=== PATIENT | female | born 1945 | race Caucasian/White ===

== ENCOUNTER → 2018-07-18 | Day surgery (SDC) | payer OTHER ==
[2018-07-16 15:16] LABS: BASOPHILS # (AUTO) 0.1 (0.0-0.1); BASOPHILS % 1.3 % (0.0-1.0); EOSINOPHILS # (AUTO) 0.1 (0.0-0.4); EOSINOPHILS % 1.9 % (0.0-6.0); HEMATOCRIT 39.6 % (34.2-44.1); LYMPHOCYTES # (AUTO) 2.4 (1.0-3.2); LYMPHOCYTES % 34.3 % (18.0-39.1); MEAN CORPUSCULAR HEMOGLOBIN 29.7 pg (28-32); MEAN CORPUSCULAR HGB CONC 32.8 g/dL (31-35); MEAN CORPUSCULAR VOLUME 90.6 fL (81-99); MONOCYTES # (AUTO) 0.5 (0.2-0.8); MONOCYTES % 7.8 % (4.4-11.3); NEUTROPHILS # (AUTO) 3.8 (2.1-6.9); NEUTROPHILS % 54.6 % (38.7-80.0); PLATELET COUNT 255 x10e3/uL (140-360); RED BLOOD COUNT 4.37 x10e6/uL (3.6-5.1); RED CELL DISTRIBUTION WIDTH 12.8 % (11.7-14.4)
--- NOTE | 2018-07-16 15:46 | Diagnostic Imaging Report ---
EXAMINATION: PA and lateral views of the chest. COMPARISON: None CLINICAL HISTORY: Preoperative study for bladder procedure DISCUSSION: Lungs are well-inflated and without focal consolidation, pleural effusion, or pneumothorax. Scattered linear opacities in the lingula and right lower lobe compatible with fibrosis or subsegmental atelectasis. Atherosclerotic calcification of the thoracic aorta. Otherwise normal cardiomediastinal contour. No acute osseous abnormal the. Degenerative disc changes of the thoracic spine. IMPRESSION: No acute cardiopulmonary abnormalities. Signed by: Dr. Constantino Judd M.D. on 07/16/2018 3:43 PM
[~2018-07-18] MED LIST: BAYER; BELLADONNA/OPIUM 30 MG SUPP RC ONE; BOTULINUM TOXIN TYPE A 100 UNIT VIAL IM ONE; DEXAMETHASONE SOD PHOS INJ 4 MG/ML VIAL ONE; EPHEDRINE SULFATE INJ 50 MG/10 ML SYR ONE; FENTANYL CITRATE/PF 100MCG/2 ML INJ ONE; GENTAMICIN 80MG/NS 100 ML 200 ML IV ONE; IOPAMIDOL 610MG/1ML 300 MG/ML VIAL IV ONE; LEVOFLOXACIN 500MG/D5W 100ML 100 ML IV ONE; LIDOCAINE HCL 2% LOCAL INJ 5 ML SDV VIAL INJ ONE; MIDAZOLAM HCL 2 MG/2 ML VIAL ONE; ONDANSETRON HCL INJ 2MG/ML 2ML 2 MG/ML VIAL ONE; PROPOFOL IV EMULSION 10 MG/ML 20 ML VIAL ONE; SEVOFLURANE INHAL SOLN 250 ML PEN BTL ONE; VASOTEC5 MG PO
--- OUTSIDE RECORDS SUMMARY | 2018-07-18 06:04 | XMS REPORT | Summary of Care ---
Author Author [facility] [place] Organization [facility] [place] Address Unknown Phone Unavailable Encounter HQ Encntr_rosie(FIN) [id number] Date(s): 08/03/15 - 08/03/15 [facility] [place] [address] [place] [address] [phone] Discharge Disposition: Home Attending Physician: Evangelista Patel MD Vital Signs No data available for this section Problem List No data available for this section Allergies, Adverse Reactions, Alerts Substance Reaction Severity Status penicillin Active sulfa drugs Active Medications No data available for this section Results No data available for this section Immunizations No data available for this section Procedures No data available for this section Social History No data available for this section Assessment and Plan No data available for this section
--- OUTSIDE RECORDS SUMMARY | 2018-07-18 06:04 | XMS REPORT | Summary of Care ---
Author Author [facility] [place] Organization [facility] [place] Address Unknown Phone Unavailable Encounter HQ Alicia_rosie(FIN) [id number] Date(s): 11/16/17 - 11/16/17 [facility] [place] [address] [place] [address]- [phone] Discharge Disposition: Home or Self Care Attending Physician: Bartolo Cartwright MD Vital Signs No data available for this section Problem List Condition Effective Dates Status Health Status Informant Aneurysm of Resolved abdominal aorta(Confirmed) CVA (cerebral Resolved vascular accident)(Confirmed) COPD (chronic Resolved obstructive pulmonary disease)(Confirmed) Dermatitis(Confirmed Resolved ) Reflux Resolved esophagitis(Confirme d) Hemorrhoids(Confirme Resolved d) HTN Resolved (hypertension)(Confi rmed) Multiparity(Confirme Resolved d) Osteoporosis(Confirm Resolved ed) Sciatica(Confirmed) Resolved Allergies, Adverse Reactions, Alerts Substance Reaction Severity Status sulfa drugs Active penicillin Active Medications No data available for this section Results No data available for this section Immunizations No data available for this section Procedures Procedure Date Related Diagnosis Body Site Status Hysterectomy Completed Laminectomy Completed Operation1 Completed 1Cervical Vertebral Fusion Social History Social History Type Response Smoking Status Current every day smoker; Exposure to Tobacco Smoke None; Cigarette Smoking Last 365 Days Yes; Reg Smoking Cessation Counseling No; Other Tobacco Frequency 1/2 a pack a day; entered on: 08/08/17 Assessment and Plan No data available for this section
--- OUTSIDE RECORDS SUMMARY | 2018-07-18 06:04 | XMS REPORT | Continuity of Care Document ---
Author Author [facility] Interface Address Unknown Phone Unavailable Problems Problem Status Onset Date Classification Date Reported Comments Source Encounter for screening for malignant neoplasm of colon 08/15/2017 11/14/2017 [facility] UNK Active 07/24/2017 [facility] M54.30 - "SCIATICA, UNSPECIFIED SIDE" Active 12/29/2015 [facility] M50.20 - OTHER CERVICAL DISC DISPLACEME Active 08/03/2015 [facility] Aneurysm of abdominal aorta Resolved Problem 11/19/2017 [facility] CVA (<span ID="[id number]">Confirmed</span>) Resolved Problem 11/19/2017 [facility] COPD (<span ID="[id number]">Confirmed</span>) Resolved Problem 11/19/2017 [facility] Dermatitis Resolved Problem 11/19/2017 [facility] Reflux esophagitis Resolved Problem 11/19/2017 [facility] Hemorrhoids Resolved Problem 11/19/2017 [facility] HTN (<span ID="[id number]">Confirmed</span>) Resolved Problem 11/19/2017 [facility] Multiparity Resolved Problem 11/19/2017 [facility] Osteoporosis Resolved Problem 11/19/2017 [facility] Sciatica Resolved Problem 11/19/2017 KRISTA [facility] Polyp of colon 11/14/2017 [facility] Diverticulosis of large intestine without perforation or abscess without bleeding 11/14/2017 [facility] Essential hypertension 11/14/2017 [facility] Gastro-esophageal reflux disease without esophagitis 11/14/2017 [facility] Chronic obstructive pulmonary disease, unspecified 11/14/2017 [facility] Anemia in other chronic diseases classified elsewhere 11/14/2017 [facility] Personal history of transient ischemic attack , and cerebral infarction without residual deficits 11/14/2017 [facility] Age-related osteoporosis without current pathological fracture 11/14/2017 [facility] Medications Medication Details Route Status Patient Instructions Ordering Provider Order Date Source Sodium Chloride 0.9% IV 1000 mL 1,000 mL, Rate: 25 ml/hr, Infuse over: 40 hr, Route: IV, Dosing Weight 61.818 kg, Total Volume: 1,000, Start date: 08/08/17 8:15:00 [employer] SCIENTIST, Duration: 30 day, Stop date: 09/07/17 8:14:00 CDT, 1.69, m2 Inactive 08/08/2017 [facility] enalapril 2.5 mg oral tablet 2.5 mg=1 tab, PO, Daily, # 30 tab, 0 Refill(s) Active 08/07/2017 [facility] Betamethasone 0.5 MG/ML Topical Lotion 1 appl, TOP, BID, 0 Refill(s) Active 08/07/2017 [facility] Doxycycline Monohydrate 100 MG Oral Tablet 100 mg=1 tab, PO, Q12H, # 28 tab, 0 Refill(s) Active 08/07/2017 [facility] Aspirin 325 MG Oral Tablet 325 mg=1 tab, PO, Daily, # 90 tab, 0 Refill(s) Active 08/07/2017 [facility] Alendronic acid 70 MG Oral Tablet 70 mg=1 tab, PO, 0 Refill(s) Active 08/07/2017 [facility] gabapentin 300 mg, PO, TID, take 2-3 times daily as needed, 0 Refill(s) Active 08/07/2017 [facility] Allergies, Adverse Reactions, Alerts Substance Category Reaction Severity Reaction type Status Date Reported Comments Source penicillin Assertion Drug allergy Active [facility] sulfa drugs Assertion Drug allergy Active [facility] Immunizations Immunization Date Given Site Status Last Updated Comments Source Results Order Name Results Value Reference Range Date Interpretation Comments Source Abdomen w/wo IV contrast CT Abdomen w/wo IV contrast CT EXAM: CT ABDOMEN WITH AND WITHOUT CONTRAST DATE: 02/14/2018 9:53 AM CDT INDICATION: - E27.9 Disorder of adrenal gland, unspecified. Adrenal nodule seen on prior chest and abdominal aorta CTA ADDITIONAL INFORMATION: None. COMPARISON: CTA of the chest and abdomen with runoff of 01/26/2018. TECHNIQUE: Volumetric CT acquisition of the abdomen before and after intravenous contrast. Axial, coronal and sagittal reconstructions. Postcontrast phases: Portal venous and delayed IV contrast: 100 cc of Omnipaque 300 Oral contrast: 700 cc of water DLP: 517 mGy-cm FINDINGS: Lines and tubes: None. Lower thorax: Stable areas of linear scarring or subsegmental atelectasis are again seen within the lung bases. No pleural or pericardial effusions are seen. Liver: Normal. Biliary tree: No intra- or extrahepatic biliary ductal dilation. Gallbladder: Normal. No CT evidence of gallstones. Pancreas: Normal. Spleen: Normal. Adrenals: Within the right adrenal gland superiorly, there is a 0.7 x 1.5 x 1.1 cm right adrenal nodule measuring 1 Hounsfield unit in density on precontrast imaging and displaying mild enhancement on postcontrast imaging. No abnormalities of the left adrenal gland are seen. Kidneys and ureters: A 6 mm hypodensity which is too small to characterize is seen in the inferior pole of the right renal cortex on image 69 of series 8. There is a mild area left posterior renal cortical scarring. Atherosclerotic calcifications are seen in distal branches of the left renal artery. Multiple 1- 2 mm calculi are seen within minor calyces of both kidneys. Otherwise, the kidneys enhance symmetrically and normally with prompt excretion of contrast material. No hydronephrosis or masses are seen. The included portions of the ureters are of normal course and caliber with no constricting or obstructing lesions. Gastrointestinal tract: The stomach is normal in appearance. No abnormalities of the included large and small bowel are demonstrated. The small intestine and colon are of normal course and caliber with no constricting or obstructing lesions, masses, or surrounding inflammatory changes. Appendix: Not visualized Peritoneum and retroperitoneum: No ascites or free air. Lymph nodes: No abdominal lymphadenopathy is seen. Vasculature: There is a stable fusiform aneurysm of the abdominal aorta distal to the renal arteries and measuring 3.1 x 3.0 cm in maximal transverse and AP dimension. Circumferential mixed calcified and noncalcified plaque formation is present. Moderate atherosclerotic calcified plaque formation is seen within the aortoiliac system as well as within the celiac axis. No abnormalities of the inferior vena cava or the portal venous system are seen. Bones: Multilevel spondylosis and disc space narrowing are seen in the included inferior thoracic and lumbar spine. Facet joint osteoarthritic changes are also seen in the inferior lumbar spine. Soft tissues/abdominal wall: Normal. No hernias, masses, or fluid collections are seen. IMPRESSION: 1. 1.5 cm in maximal diameter lipid rich right adrenal adenoma. 2. Stable 3.1 cm in maximal diameter infrarenal fusiform abdominal aortic aneurysm. 3. Multiple bilateral 1-2 mm renal calculi. No hydronephrosis or ureteral calculi are seen. 4. 6 mm hypodensity in the inferior pole of the right kidney, too small to characterize. Left posterior renal cortical scarring is present. 02/14/2018 - - Read by: David Monge MD Dictated Date/time: 02/14/18 10:38 Electronically Signed by: David Monge MD 02/14/18 10:[address] [facility] Chest/Abdominal Aorta with Runoff CTA Chest/Abdominal Aorta with Runoff CTA EXAM: CTA CHEST WITH CONTRAST EXAM: CTA ABDOMEN AND PELVIS WITH CONTRAST EXAM: CTA BILATERAL LOWER EXTREMITY WITH CONTRAST DATE: 01/26/2018 12:41 PM CDT INDICATION: I71.4 Abdominal aortic aneurysm, without rupture;I51.3 Intracardiac thrombosis, not elsewhere classified - Yearly F/U COMPARISON: Aorta ultrasound 01/25/2018 TECHNIQUE: Volumetric CT of the chest, abdomen and pelvis is acquired in arterial phase following intravenous administration of contrast. Additionally, volumetric CT of the bilateral lower extremities runoff is acquired during arterial phase. Axial, sagittal and coronal reconstructions, including sagittal and coronal MIP reconstructions, are created at the acquisition workstation. IV contrast: 95 mL of Omnipaque 300 Oral contrast: None. DLP: 544.43 mGy-cm FINDINGS: AORTA AND ITS BRANCHES: Diffuse atherosclerotic disease involving the aorta is branches. There is greater than 50% stenosis of the left common carotid artery (series 2 image 48). Variant hepatic arterial anatomy with a replaced left hepatic artery arising from a gastrohepatic trunk. Replaced right hepatic artery arising from the SMA. The celiac axis, SMA and PETER origins are patent with minimal atherosclerotic plaque at the origins. Bilateral single renal arteries with no significant stenosis at the origins. The aorta measures: 3.8 x 3.6 cm at the ascending aorta at the level of the pulmonary artery, 2.5 x 2.7 cm at the mid arch, 2.7 x 2.7 cm at the descending aorta at the level of the main pulmonary artery, 2.3 x 2.3 cm at the level of the aortic hiatus, 2.1 x 1.8 cm at the level of the renal arteries, and 2.4 x 2.0 cm just proximal to the iliac bifurcation. Mild aneurysmal dilatation of the abdominal aorta is noted at the level of L3-L4 measuring up to 3 cm in diameter. Near circumferential soft plaque is noted within the aneurysmal dilatation. The branching pattern is unremarkable. No dissection identified. Soft plaques are seen throughout the descending thoracic aorta, abdominal aorta, bilateral common iliac arteries. RIGHT: External and internal iliac arteries: Moderate atherosclerotic disease of the external iliac artery and moderate to severe atherosclerotic disease of the internal iliac artery. Common femoral: Moderate disease. Superficial femoral: Moderate atherosclerotic disease. Deep femoral: Mild atherosclerotic disease Popliteal: Moderate atherosclerotic disease. Anterior tibial: Unremarkable. Dorsalis pedis patent at the foot. Tibioperoneal trunk: Unremarkable. Posterior tibial: Multisegmental nonopacification of the posterior tibial artery Peroneal: Unremarkable. LEFT: External and internal iliac arteries: Moderate disease of the external iliac artery. Moderate to severe atherosclerotic disease of the internal iliac artery. Common femoral: Moderate disease Superficial femoral: Moderate atherosclerotic disease. Deep femoral: Mild atherosclerotic disease. Popliteal: Moderate atherosclerotic disease. Anterior tibial: Unremarkable. Dorsalis pedis patent at the foot. Tibioperoneal trunk: Unremarkable. Posterior tibial: Multisegmental nonopacification of the posterior tibial artery Peroneal: Unremarkable. CHEST: Lungs and pleura: The lungs are clear. No pleural effusion or pneumothorax. Hearth and mediastinum: Heart size is normal atherosclerotic calcifications of the left anterior descending and left circumflex is noted. No lymphadenopathy. ABDOMEN: Hepatobiliary: Unremarkable. Gallbladder: Unremarkable. Spleen: Unremarkable. Pancreas: Unremarkable. Adrenals: Ill-defined right adrenal nodule measuring up to 1 cm in diameter. The left adrenal appears normal. Kidneys: Focal scarring is noted in the upper pole of the left kidney. The right kidney appears to be normal. Bowel and mesentery: Diffuse colonic diverticulosis without evidence of diverticulitis. Bones: ACDF hardware of C5-C6 is noted. Degenerative disc disease are noted throughout the thoracic and lumbar spine. Diffuse osteoporosis. No acute fracture identified. IMPRESSION: 1. Aneurysmal dilatation of the ascending aorta at the level of the pulmonary artery measuring up to 3.8 cm. 2. Redemonstration of abdominal aortic fusiform aneurysm with circumferential soft plaque. 3. Moderate to severe atherosclerotic disease of the descending thoracic aorta, abdominal aorta, bilateral common iliacs and arteries of the bilateral lower extremities. 4. Multisegmental nonopacification of the bilateral posterior tibial arteries which may be secondary to severe atherosclerotic disease. 5. Incidentally noted ill-defined right adrenal nodule. This can be further evaluated with dedicated nonemergent adrenal protocol CT. 01/26/2018 - - This report was dictated by a Heel Lift Gouger/Fellow. I have personally reviewed the images as well as the Resident's interpretation and agree with the findings. Read by: Ortiz Garnett MD Resident: Ortiz Garnett MD Dictated Date/time: 01/30/18 15:40 Electronically Signed by: Emre Bernardo 02/05/18 23:[address] [facility] Aorta US Aorta US EXAMINATION:Aorta US DATE:01/25/2018 8:03 AM CDT TECHNIQUE: Focus grayscale and Doppler ultrasound of the aorta. COMPARISON:None. INDICATION: - I71.4 Abdominal aortic aneurysm, without rupture FINDINGS: Proximal abdominal aorta: 2.5cm Mid abdominal aorta: 2.0cm Distal abdominal aorta: 3.0 x 3.2 x 3.1cm Right common iliac artery: 0.7cm Left common iliac artery: 0.7cm Moderate atherosclerotic plaque seen. IMPRESSION: 1. Fusiform 3.2 cm distal abdominal aortic aneurysm with mural thrombus. Recommend further evaluation with contrast-enhanced CT angiogram. 2. Moderate to marked atherosclerotic plaque. 01/25/2018 - - Read by: Florentin Carrington MD Dictated Date/time: 01/25/18 08:56 Electronically Signed by: Florentin Carrington MD 01/25/18 09:[address] [facility] Spine lumbar w/wo contrast MRI Spine lumbar w/wo contrast MRI EXAM: MRI LUMBAR SPINE WITHOUT AND WITH CONTRAST DATE: 11/16/2017 2:19 PM CDT . ORDERING PHYSICIAN: Bartolo Cartwright MD CLINICAL INDICATION: M54.5 Low back pain - M54.5 Low back pain; TECHNIQUE: Multiplanar, multisequence MRI lumbar spine performed both prior to and after uncomplicated IV administration of 12 cc Dotarem. COMPARISON: January 06, 2016 lumbar MRI FINDINGS: INTRASPINAL CONTENTS/CONUS: The conus terminates at L1-L2. No definite dural based lesion. VERTEBRAE: The vertebrae are normal in height and alignment. No focal suspicious bone marrow signal abnormality. PARASPINAL SOFT TISSUES: No edema or definite masses. No aortic aneurysm. ENHANCEMENT: There is no abnormal enhancement DISC SPACES, SPINAL CANAL, AND NEURAL FORAMINA: There is partially visualized degeneration of the T9-10 and T10-11 discs which indents the thecal sac but does not clearly contact of the spinal cord. T12-L1. Intervertebral disc height and signal are maintained. Posterior elements are normal. There is no stenosis. L1-L2. Dehydrated disc with shallow diffuse bulge and ventral fissuring. Facets are unremarkable. Central canal measures 13 mm lateral recesses are patent. Neural foramina are patent. L2-L3. Disc with small diffuse bulge. Facets are mildly enlarged. Central canal measures 13 mm. Lateral recesses are patent. Neural foramina are patent. L3-L4. Dehydrated disc with diffuse disc bulge. There is bilateral facet hypertrophy with ligamentous redundancy. Central canal measures 11 mm. Lateral recesses are mildly narrowed with disc contacting the descending L4 nerve root, causing no substantial mass effect. Foraminal disc bulge mildly narrows the neural foramina but does not contact the exiting L3 nerve root. L4-L5. Loss of disc height and signal with circumferential disc osteophyte complex. There is mild facet hypertrophy of ligamentous redundancy. Patient is status post right laminotomy and ligamentous stripping. Central canal measures 10 mm. Lateral recesses are narrowed without L5 nerve root mass effect. There is moderate to severe right and moderate left neural foramen narrowing. The right exiting nerve root is deformed by disc and facets. L5-S1. Dehydrated disc with diffuse disc bulge. This bilateral facet hypertrophy. Central canal measures 11 mm. Lateral recesses are patent. There is severe narrowing of left neural foramen with exiting nerve root compressed between disc and facets. There is moderate narrowing of the right neural foramen with exiting nerve root minimally contacted by the disc. IMPRESSION: 1. Neural foramen narrowings most substantial on the right at L4-5 and on the left L5-S1 2. Patent lumbar central canal 3. Resolution of endplate inflammatory changes 11/16/2017 - - Read by: Hugo Wood MD Dictated Date/time: 11/17/17 06:26 Electronically Signed by: Hugo Wood MD 11/17/17 06:34 FINAL REPORT [facility] Chest 2 views DX Chest 2 views DX Exam: Two-view chest x-ray Reason for Exam: J44.9 Chronic obstructive pulmonary disease, unspecified Comparison Exam: 11/18/2009 Discussion: Cardiomediastinal silhouette is within normal limits. Both hemidiaphragms well visualized. No pulmonary edema or pleural effusions. No focal lung consolidations. Trachea is midline. No acute bony abnormalities. Moderate multilevel degenerative disc disease seen within the thoracic spine. Impression: 1. No appreciable evidence seen for chronic obstructive pulmonary disease. If further characterization is warranted, consider dedicated high-resolution noncontrast chest CT. 07/27/2016 - - Read by: Enrique Byrd MD Dictated Date/time: 07/27/16 12:00 Electronically Signed by: Enrique Byrd MD 07/27/16 12:03 FINAL REPORT [facility] Spine lumbar w/wo contrast MRI Spine lumbar w/wo contrast MRI LUMBAR SPINE MRI WITH AND WITHOUT CONTRAST. TECHNIQUE: Sagittal T1, sagittal T2, sagittal STIR and axial T1/T2 images without contrast were obtained. Postcontrast sagittal T1 and axial T1 images were obtained after the administration of 14 cc of Omniscan. FINDINGS: There is minimal T2 hyperintensity and enhancement of the L4-L5 endplates and disc. Susceptibility artifact is noted in the subcutaneous tissues at this level possibly due to air/recent procedure. The vertebrae are otherwise normal in shape, signal intensity and alignment. The intervertebral disks are desiccated with mild height loss at L4-L5. The spinal canal is normal in size. The conus medullaris terminates normally at the L1 level. There is no intradural mass lesion. No abnormal epidural or nerve root enhancement seen. The paravertebral musculature demonstrates mild fatty atrophy in keeping with deconditioning. L1-L2: Unremarkable L2-L3: Minimal facet hypertrophy and disc bulge. No significant stenosis. L3-L4: Mild disc bulge and facet hypertrophy. There is minimal neural foraminal and lateral recess narrowing. L4-L5: Mild to moderate disc bulge measuring up to 4 mm anterior posteriorly with mild facet hypertrophy, mild posterior osteophytes, and right paracentral annular tearing. This results in mild right greater than left neural foraminal and lateral recess narrowing. L5-S1: Mild disc bulge and facet hypertrophy resulting in mild bilateral neural foraminal narrowing. IMPRESSION: 1. Mild to moderate, multilevel lower lumbar degenerative changes as detailed above with L4-L5 annular tearing and mild neural foraminal and lateral recess stenoses. 2. T2 hyperintensity of the endplates at L4-L5 and slightly the disc are probably degenerative in nature (type I). However, an indolent infection (such as Propionibacterium) cannot be excluded. Consider correlation with white blood cell count, C-reactive protein, and sedimentation rate. 01/06/2016 - - Read by: Samuel Gan MD Dictated Date/time: 01/06/16 13:12 Electronically Signed by: Samuel Gan MD 01/06/16 13:23 FINAL REPORT [facility] Spine cervical comp w obl-flx/ext DX Spine cervical comp w obl-flx/ext DX CERVICAL SPINE X-RAY, AP, lateral with flexion and extension History: 70-year-old female to evaluate fusion status. Comparison: None Findings: No acute fracture or subluxation seen. The lateral masses of C1 and C2 are aligned. Vertebral bodies have normal height. With flexion there is a 1.6 mm anterior displacement of C3 on C4, otherwise cervical vertebral bodies appear normal. C3 has anterior prominent osteophytes. ACDF C4-C5 appears stable. The inferior aspect of plate at C5 is elevated by 3 mm from bone surface and is stable. The lower cervical spine has a bony fusion that is stable. Prevertebral soft tissues are unremarkable. IMPRESSION: C3 displaces on C4 by 1.6 mm only in flexion. Cervical spine fusion appears stable. 08/03/2015 - - Read by: Luciano James MD Dictated Date/time: 08/03/15 10:31 Electronically Signed by: Luciano James 08/03/15 10:42 FINAL REPORT [facility] Vital Signs Vital Sign Value Date Comments Source Respitory Rate 17 08/08/2017 [facility] Systolic (mm Hg) 125 08/08/2017 [facility] Diastolic (mm Hg) 65 08/08/2017 [facility] Systolic (mm Hg) 123 08/08/2017 [facility] Diastolic (mm Hg) 72 08/08/2017 [facility] Respitory Rate 18 08/08/2017 [facility] Respitory Rate 17 08/08/2017 [facility] Systolic (mm Hg) 125 08/08/2017 [facility] Diastolic (mm Hg) 85 08/08/2017 [facility] BMI Calculated 23.39 08/07/2017 [facility] Weight 61.818 08/07/2017 [facility] Height 162.56 cm 08/07/2017 [facility] Encounters Location Location Details Encounter Type Encounter Number Reason For Visit Attending Provider ADM Date DC Date Status Source [facility] [id number] Evangelista Patel 08/03/2015 08/04/2015 [facility] [id number] Bartolo Cartwright 01/06/2016 01/07/2016 [facility] [id number] Bartolo Cartwright 07/27/2016 07/28/2016 [facility] Outpatient [id number] Richard Juarez 08/08/2017 08/08/2017 [facility] [id number] Bartolo Catrwright 11/16/2017 11/17/2017 [facility] Procedures Procedure Code Date Perfomer Comments Source Hysterectomy [id number] [facility] Laminectomy [id number] [facility] Operation<sup>1</sup> [id number] Cervical Vertebral Fusion [facility] Hysterectomy [id number] [facility] Laminectomy [id number] [facility] Operation<sup>1</sup> [id number] Cervical Vertebral Fusion [facility]
--- OUTSIDE RECORDS SUMMARY | 2018-07-18 06:04 | XMS REPORT | Summary of Care ---
Author Author [facility] Organization [facility] Address Unknown Phone Unavailable Encounter SEBASTIAN Arce(MARGARETH) [id number] Date(s): 08/08/17 - 08/08/17 [facility] [address] [place] [address]- [phone] Encounter Diagnosis Polyp of colon (Final) - Diverticulosis of large intestine without perforation or abscess without bleedin g (Final) - Essential (primary) hypertension (Final) - Gastro-esophageal reflux disease without esophagitis (Final) - Chronic obstructive pulmonary disease, unspecified (Final) - Anemia in other chronic diseases classified elsewhere (Final) - Personal history of transient ischemic attack (TIA), and cerebral infarction wit hout residual deficits (Final) - Age-related osteoporosis without current pathological fracture (Final) - Encounter for screening for malignant neoplasm of colon (Final) - 08/14/17 Discharge Disposition: Home or Self Care Attending Physician: Richard Juarez MD Referring Physician: Richard Juarez MD Vital Signs 1 2 3 Most recent to oldest [Reference Range]: 162.56 cm (08/07/17 1:42 PM) Height 125/65 mmHg (08/08/17 12:30 PM) 123/72 mmHg (08/08/17 12:15 PM) 125/85 mmHg (08/08/17 12:00 PM) Blood Pressure [90-140/60-90 mmHg] 17 BRMIN (08/08/17 12:30 PM) 18 BRMIN (08/08/17 12:15 PM) 17 BRMIN (08/08/17 12:00 PM) Respiratory Rate [14-20 BRMIN] 61.818 kg (08/07/17 1:42 PM) Weight 23.39 m2 (08/07/17 1:42 PM) Body Mass Index Problem List Condition Effective Dates Status Health Status Informant Aneurysm of Resolved abdominal aorta(Confirmed) CVA (cerebral Resolved vascular accident)(Confirmed) COPD (chronic Resolved obstructive pulmonary disease)(Confirmed) Dermatitis(Confirmed Resolved ) Reflux Resolved esophagitis(Confirme d) Hemorrhoids(Confirme Resolved d) HTN Resolved (hypertension)(Confi rmed) Multiparity(Confirme Resolved d) Osteoporosis(Confirm Resolved ed) Sciatica(Confirmed) Resolved Allergies, Adverse Reactions, Alerts Substance Reaction Severity Status sulfa drugs Active penicillin Active Medications alendronate 70 mg oral tablet 70 mg=1 tab, PO, 0 Refill(s) Start Date: 08/07/17 Status: Ordered aspirin 325 mg tablet 325 mg=1 tab, PO, Daily, # 90 tab, 0 Refill(s) Start Date: 08/07/17 Status: Ordered betamethasone dipropionate topical 0.05% lotion 1 appl, TOP, BID, 0 Refill(s) Start Date: 08/07/17 Status: Ordered doxycycline monohydrate 100 mg oral tablet 100 mg=1 tab, PO, Q12H, # 28 tab, 0 Refill(s) Start Date: 08/07/17 Stop Date: 08/21/17 Status: Ordered enalapril 2.5 mg oral tablet 2.5 mg=1 tab, PO, Daily, # 30 tab, 0 Refill(s) Start Date: 08/07/17 Status: Ordered gabapentin 300 mg, PO, TID, take 2-3 times daily as needed, 0 Refill(s) Start Date: 08/07/17 Status: Ordered Sodium Chloride 0.9% IV 1000 mL 1,000 mL, Rate: 25 ml/hr, Infuse over: 40 hr, Route: IV, Dosing Weight 61.818 kg , Total Volume: 1,000, Start date: 08/08/17 8:15:00 [employer]ING [employer]ER, Duration: 30 day, Stop date: 09/07/17 8:14:00 CDT, 1.69, m2 Start Date: 08/08/17 Stop Date: 08/08/17 Status: Discontinued Results No data available for this section Immunizations No data available for this section Procedures Procedure Date Related Diagnosis Body Site Status Hysterectomy Completed Laminectomy Completed Operation1 Completed 1Cervical Vertebral Fusion Social History Social History Type Response Smoking Status Current every day smoker; Exposure to Tobacco Smoke None; Cigarette Smoking Last 365 Days Yes; Reg Smoking Cessation Counseling No; Other Tobacco Frequency 2 a pack a day; entered on: 08/08/17 Assessment and Plan No data available for this section
--- OUTSIDE RECORDS SUMMARY | 2018-07-18 06:04 | XMS REPORT | Summary of Care ---
Author Author [facility] [place] Organization [facility] Address Unknown Phone Unavailable Encounter HQ Encntr_alithiago(FIN) [phone] Date(s): 01/06/16 - 01/06/16 [facility] [place] [address] [place] [address]- [phone] Discharge Disposition: Home or Self Care Attending [...]
--- OUTSIDE RECORDS SUMMARY | 2018-07-18 06:04 | XMS REPORT | Summary of Care ---
Author Author [facility] [place] Organization [facility] [place] Address Unknown Phone Unavailable Encounter HQ Encntr_alithiago(FIN) [id number] Date(s): 07/27/16 - 07/27/16 [facility] [place] [address] [place] [address]- [phone] Discharge Disposition: Home or Self Care Attending [...]
--- OUTSIDE RECORDS SUMMARY | 2018-07-18 06:05 | XMS REPORT ---
Author Author [facility] Address Unknown Phone Unavailable Care Team Providers Care Fixer Supervisor Name Role Phone ADOLFO WAYNE Unavailable Unavailable Problems This patient has no known problems. Allergies, Adverse Reactions, Alerts This patient has no known allergies or adverse reactions. Medications This patient has no known medications. Results Test Description Test Time Test Comments Text Results Atomic Results Result Comments CHEST 2 VIEWS 2018-07-16 15:42:00 [place] [address] Patient Name: SHELLEY MERA MR #: [id number] : 1945 Age/Sex: 73/F Req #: [id number] Adm Physician: Ordered by: ADOLFO WAYNE MD Report #: [id number] Location: OR Room/Bed: Procedure: [id number] DX/CHEST 2 VIEWS Exam Date: 07/16/18 Exam Time: 1505 REPORT STATUS: Signed EXAMINATION: PA and lateral views of the chest. COMPARISON: None CLINICAL HISTORY: Preoperative study for bladder procedure DISCUSSION: Lungs are well-inflated and without focal consolidation, pleural effusion, or pneumothorax. Scattered linear opacities in the lingula and right lower lobe compatible with fibrosis or subsegmental atelectasis. Atherosclerotic calcification of the thoracic aorta. Otherwise normal cardiomediastinal contour. No acute osseous abnormal the. Degenerative disc changes of the thoracic spine. IMPRESSION: No acute cardiopulmonary abnormalities. Signed by: Meena Choe on 07/16/2018 3:43 PM Dictated By: CALEB MCKENO MD [id number] Transcribed By: RAMEZ on 07/16/18 1543 COPY TO: ADOLFO WAYNE MD
--- OUTSIDE RECORDS SUMMARY | 2018-07-18 06:05 | XMS REPORT | Summary of Care ---
Author Author Tiffany Oliveira LVN Organization Unknown Address [facility] Phone Unavailable Care Team Providers Care Lead Refinery Supervisor Name Role Phone Tiffany Oliveira LVN Unavailable Unavailable LUISANA Dasilva, MIAN Unavailable Unavailable ANGELINE Levy, IBAN Unavailable Unavailable ETHEL GOODMAN [place], VAL RODRIGUEZ Unavailable Unavailable ETHEL Dasilva, VAL Jean-Baptiste Unavailable ANGELINE DE SOUZA [place], IBAN Unavailable Unavailable Ann GOODMAN, Viky Unavailable Unavailable Unavailable Unavailable Functional Status Name Dates Details Functional status health issues are not documented Status: Name Dates Details Cognitive status health issues are not documented Status: Problems Name Dates Details Hoarseness (784.42) Status: Active Speech Language Aphasia / Dysphasia (784.59) Status: Active Chronic Obstructive Pulmonary Disease With Exacerbation (491.22) Status: Active Acute recurrent sinusitis (461.9, J01.91) Status: Active Acute bronchitis (466.0, J20.9) Status: Active Viral intestinal infection (008.8, A08.4) Status: Active Myalgia and myositis (729.1) Status: Active Esophageal reflux (530.81, K21.9) Status: Active Hospital discharge follow-up (V67.59, Z09) Status: Active Left-sided chest wall pain (786.52, R07.89) Status: Active Abdominal pain, RLQ (789.03, R10.31) Status: Active Upper back pain (724.5, M54.9) Status: Active Dermatitis (692.9, L30.9) Status: Active Cervicalgia (723.1, M54.2) Status: Active Paresthesia of right arm (782.0, R20.2) Status: Active Abnormal MRI, lumbar spine (793.7, R93.7) Status: Active Skin candidiasis (112.3, B37.2) Status: Active Chronic low back pain (724.2, M54.5) Status: Active At high risk for falls (V15.88, Z91.81) Status: Active Advance directive discussed with patient (V65.49, Z71.89) Status: Active Blurred vision (368.8, H53.8) Status: Active Weight loss (783.21, R63.4) Status: Active Need for pneumococcal vaccination (V03.82, Z23) Status: Active Flu vaccine need (V04.81, Z23) Status: Active Breast cancer screening (V76.10, Z12.31) Status: Active Balance problem (781.99, R26.89) Status: Active Depression (311, F32.9) Status: Active Leg cramps (729.82, R25.2) Status: Active Leg cramps (729.82, R25.2) Status: Active 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, 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) Status: Active Acute dermatitis (692.9, L30.9) Status: Active Elevated blood pressure reading in office with diagnosis of hypertension (401.9, I10) Status: Active Blepharitis of right upper eyelid, unspecified type (373.00, H01.001) Status: Active Positive FIT (fecal immunochemical test) (792.1, R19.5) Status: Active Blood in stool (578.1, K92.1) Status: Active Anemia of chronic disease (285.29, D63.8) Status: Active Constipation (564.00, K59.00) Status: Active Burning with urination (788.1, R30.0) Status: Active Dysuria (788.1, R30.0) Status: Active Breast cancer screening (V76.10, Z12.31) Status: Active Depression screening (V79.0, Z13.31) Status: Active At low risk for fall (V49.89, Z91.81) Status: Active Varicose veins (454.9, I83.90) Status: Active Osteopenia (733.90, M85.80) Status: Active Pain, foot, chronic (729.5, M79.673) Status: Active 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, G57.90) Status: Active Hyperglycemia (790.29, R73.9) Status: Active Encounter for mini-mental status examination Status: Active Essential (primary) hypertension (401.9, I10) Status: Active UTI (urinary tract infection), bacterial (599.0, N39.0) Status: Active Dizziness (780.4, R42) Status: Active Syncope (780.2, R55) Status: Active Pain in both feet (729.5, M79.671) Status: Active Low back pain with radiation (724.3, M54.40) Status: Active Urinary incontinence (788.30, R32) Status: Active Urinary tract infection (599.0, N39.0) Status: Active History of lumbar surgery (V15.29, Z98.890) Status: Active Mural thrombus of heart (410.90, I51.3) Status: Active Need for influenza vaccination (V04.81, Z23) Status: Active Need for Tdap vaccination (V06.1, Z23) Status: Active Adrenal nodule (255.8, E27.9) Status: Active Chronic obstructive pulmonary disease (496, J44.9) Status: Active Neurogenic bladder (596.54, N31.9) Status: Active Colon cancer screening (V76.51, Z12.11) Status: Active Bunion, left (727.1, M21.612) Status: Active Bunion, right (727.1, M21.611) Status: Active Foraminal stenosis of lumbar region (724.02, M99.83) Status: Active Osteoporosis (733.00, M81.0) Status: Active Sciatica (724.3, M54.30) Status: Active Abdominal aortic aneurysm (AAA) (441.4, I71.4) Status: Active Aneurysm of ascending aorta (441.2, I71.2) Status: Active Medications Name Dates Details Aspirin 325 MG Oral Tablet TAKE 1 TABLET DAILY. Active Enalapril Maleate 2.5 MG Oral Tablet TAKE 1 TABLET DAILY. * Quantity: 30 Refills: 5 ANGELINE P.A., IBAN * Start : 11-Feb-2014 Active Alendronate Sodium 70 MG Oral Tablet TAKE 1 TABLET BY MOUTH 1 TIME A WEEK * Quantity: 12 Refills: 1 ANGELINE P.A., IBAN * Start : 22-Apr-2014 Active Gabapentin 300 MG Oral Capsule TAKE ONE CAPSULE BY MOUTH TWO TO THREE TIMES DAILY * Quantity: 90 Refills: 2 ANGELINE P.A., IBAN * Start : 27-Jul-2015 Active Betamethasone Dipropionate Aug 0.05 % External Lotion APPLY SPARINGLY TO AFFECTED AREA(S) TWICE DAILY * Quantity: 1 Refills: 2 ANGELINE P.A., IBAN * Start : 25-Dec-2015 Active 60 ML Bottle Nitrofurantoin Monohyd Macro 100 MG Oral Capsule TAKE 1 CAPSULE TWICE DAILY UNTIL GONE. * Quantity: 20 Refills: 0 ANGELINE P.A., IBAN * Start : 20-Oct-2017 Active Meloxicam 15 MG Oral Tablet TAKE 1 TABLET DAILY. * Quantity: 30 Refills: 1 GAUVAIN M.Alexander., MIAN * Start : 30-Oct-2017 Active Metaxalone 800 MG Oral Tablet TAKE 1 TABLET 3 TIMES DAILY NEEDED FOR MUSCLE SPASM. * Quantity: 30 Refills: 0 GAUVAIN M.D., MIAN * Start : 30-Oct-2017 Active TiZANidine HCl - 4 MG Oral Capsule TAKE 2 CAPSULES EVERY 6 TO 8 HOURS. * Quantity: 40 Refills: 0 GAUVAIN M.D., MIAN * Start : 03-Nov-2017 Active Cyclobenzaprine HCl - 10 MG Oral Tablet TAKE 1 TABLET 3 TIMES DAILY. * Quantity: 30 Refills: 1 GAUVAIN M.D., MIAN * Start : 11-Dec-2017 Active Tdap (Adacel) inject 0.5ml IM * Quantity: 1 Refills: 0 ANGELINE P.A., IBAN * Start : 26-Feb-2018 Active 0.5 ML Syringe Meloxicam 15 MG Oral Tablet TAKE 1 TABLET DAILY. * Quantity: 30 Refills: 2 GAUVAIN M.D., MIAN * Start : 23-Apr-2018 Active Allergies and Adverse Reactions Name Dates Details Penicillins (Allergy) Reaction: Swelling, Itching Status: Active Sulfa Drugs (Allergy) Reaction: Itching, Swelling Status: Active Past Medical History Name Dates Details History of Aneurysm, abdominal aortic (441.4, I71.4) Status: Resolved History of esophageal reflux (V12.79, Z87.19) Status: Resolved History of Multiparity (V61.5, Z64.1) Status: Resolved History of stroke (V12.54, Z86.73) Status: Resolved Procedures Procedure Dates Details History of Hysterectomy Completed History of Cervical Vertebral Fusion Completed History of Laminectomy Lumbar Completed Immunization Name Dates Details Influenza on: Sep-2010 Fluzone INJ Lot #: [id number] on: 07-May-2013 Fluzone Quadrivalent 0.5 ML Intramuscular Suspension on: 19-Apr-2015 Prevnar 13 Intramuscular Suspension Lot #: [id number] on: 27-Jul-2015 Pneumovax 23 25 MCG/0.5ML Injection Injectable Lot #: [id number] on: 26-Jul-2016 Fluzone Quadrivalent 0.5 ML Intramuscular Suspension Prefilled Syringe Lot #: [id number] on: 26-Jul-2016 Fluzone High-Dose 0.5 ML Intramuscular Suspension Prefilled Syringe Lot #: [id number] on: 03-May-2017 Fluzone High-Dose 0.5 ML Intramuscular Suspension Prefilled Syringe Lot #: [id number] on: 26-Feb-2018 Family History Name Dates Details Family history of Cancer Status: Active Family history of Stroke Complications Status: Active Name Dates Details Family history of Coronary Artery Disease (V17.49) Status: Active Social History Name Dates Details - Status: Name Dates Details Current every day smoker Vital Signs Date Test Result Details No Known Vitals to report Results Date Description Value Details Results not documented Plan of Care Name Dates Details Planned Observations Planned Goals not documented Planned Encounters Appointment; IBAN MARCUS P.A. On: 27-Aug-2018 8:30 Instructions Name Dates Details Instructions not documented Encounters Appointment; IBAN MARCUS P.A. Encounter Diagnosis: Problem not documented On: 26-Jul-2016 14:30 Appointment; IBAN MARCUS P.A. Encounter Diagnosis: Problem not documented On: 12-Oct-2016 9:30 Appointment; IBAN MARCUS P.A. Encounter Diagnosis: Problem not documented On: 03-May-2017 9:00 Appointment; YANA DELANEY P.A. Encounter Diagnosis: Problem not documented On: 10-May-2017 8:00 Appointment; VIKY WHITNEY M.D. Encounter Diagnosis: Problem not documented On: 18-Jul-2017 13:00 Appointment; VIKY WHITNEY M.D. Encounter Diagnosis: Problem not documented On: 23-Aug-2017 10:00 Appointment; IBAN MARCUS P.A. Encounter Diagnosis: Problem not documented On: 05-Oct-2017 14:00 Appointment; IBAN MARCUS P.A. Encounter Diagnosis: Problem not documented On: 20-Oct-2017 10:00 Appointment; MIAN LIEBERMAN M.D. Encounter Diagnosis: Problem not documented On: 30-Oct-2017 10:45 Appointment; IBAN MARCUS P.A. Encounter Diagnosis: Problem not documented On: 09-Nov-2017 9:00 Appointment; MIAN LIEBERMAN M.D. Encounter Diagnosis: Problem not documented On: 11-Dec-2017 10:45 Appointment; MIAN LIEBERMAN M.D. Encounter Diagnosis: Problem not documented On: 22-Jan-2018 10:45 Appointment; IBAN MARCUS P.A. Encounter Diagnosis: Problem not documented On: 26-Feb-2018 8:30 Appointment; MARIO AMADOR M.D. Encounter Diagnosis: Problem not documented On: 02-Mar-2018 10:00 Appointment; MIAN LIEBERMAN M.D. Encounter Diagnosis: Problem not documented On: 23-Apr-2018 9:15
[2018-07-18 07:36] LABS: ANION GAP 14.9 mmol/L (8-16); BLOOD UREA NITROGEN 9 mg/dL (7-26); BUN/CREATININE RATIO 11 (6-25); CALCIUM 9.4 mg/dL (8.4-10.2); CARBON DIOXIDE 23 mmol/L (22-29); CHLORIDE 104 mmol/L (98-107); CREATININE, SERUM 0.82 mg/dL (0.57-1.11); EST GLOMERULAR FILTRATION RATE > 60 ML/MIN (60-); GLUCOSE 98 mg/dL (74-118); POTASSIUM 3.9 mmol/L (3.5-5.1); SODIUM 138 mmol/L (136-145)
[2018-07-18 10:30] VITALS: BP 126/76
--- NOTE | 2018-08-13 10:17 | Operative Report ---
DATE OF PROCEDURE: 07/18/2018 SURGEON: Damion Velasco MD PREOPERATIVE DIAGNOSES: 1. Refractory urge incontinence. 2. Suprapubic cystostomy. 3. Urinary retention. 4. Urinary tract infections. POSTOPERATIVE DIAGNOSES: 1. Refractory urge incontinence. 2. Suprapubic cystostomy. 3. Urinary retention. 4. Urinary tract infections. 5. Mild cystocele. 6. Mild rectocele. 7. Atrophic (senile) vaginitis. OPERATIONS PERFORMED: 1. Change of cystostomy tube (separate performed for the cystostomy tube and the urinary retention). 2. Cystourethroscopy with bilateral ureteral catheterization and retrograde ureteropyelography (separate performed for the urinary tract infections). 3. Interpretation of retrograde ureteropyelography. 4. Supervision of fluoroscopy, no radiologist present. 5. Cystourethroscopy with intravesical injection of Botox (separate performed for the refractory incontinence). 6. Pelvic examination under anesthesia. ANESTHESIA: General. COMPLICATIONS: None. CLINICAL SUMMARY: Chela Burrell is a 73-year-old woman with the above preoperative diagnoses. She is brought for above procedures. She is aware of risks of bleeding, infection, injury to adjacent structures, and need for additional procedures, and elected to proceed. PROCEDURE IN DETAIL: Informed consent was verified. Chela Burrell was preoperatively identified, taken to the operating room, and placed on the cystoscopy table in supine position. Anesthesia was uneventfully begun. The patient was then carefully and gently repositioned in the dorsal lithotomy position with all pressure points well padded. Her suprapubic cystostomy was removed. Her abdomen and genitalia were then prepared and draped in usual sterile fashion. A 24-Sinhala Lance catheter with a 10 mL balloon was then inserted into the patient's cystostomy site. It was carefully guided into which should be the bladder region. It was then inflated with 10 mL of sterile water. It was irrigated to and fro to ensure work properly. A 22.5-Sinhala cystoscope sheath with obturator in place, was atraumatically inserted into the patient's urethra and the bladder was drained. Panendoscopy of the urinary bladder revealed no suspicious mucosal lesions. There were no tumors. Mild inflammation was noted. The cystostomy was in the correct position within the bladder. An 8-Sinhala catheter was used to cannulate the each ureter and retrograde ureteropyelograms were performed. Interpretation of Retrograde Ureteropyelography: Contrast was instilled in a retrograde fashion bilaterally. There were no tumors, no stones, no diverticula. Unobstructed drainage was observed bilaterally fluoroscopically. A 200 units of Botox were dissolved in 20 mL of sterile saline. It was then injected in 1 mL aliquots in an even distribution in the supratrigonal bladder. The patient's bladder was drained. The cystoscope was withdrawn. Pelvic examination under anesthesia revealed a grade 1 cystocele, grade 1 rectocele. There was atrophic vaginitis. No abnormal palpable pelvis masses could be appreciated. There were no obvious mucosal lesions. The patient was then uneventfully reversed from anesthesia and taken to recovery room in stable condition. There were no complications to the procedure. She tolerated the procedure well. Exclusive postoperative instructions were given. We will follow the patient up in the office in approximately 1 month at which point in time we will change her cystostomy tube. Damion Velasco MD [place]/MODBogdan /[id number] cc: Bartolo Cartwright
== END | disposition home or self-care (01) ==
LOC: OR 06:02
PROVIDERS: ATTEND Urology
DX: N39.41 Urge incontinence (principal); Z43.5 Encounter for attention to cystostomy; N39.0 Urinary tract infection, site not specified; N81.10 Cystocele, unspecified; N81.6 Rectocele; N95.2 Postmenopausal atrophic vaginitis; J44.9 Chronic obstructive pulmonary disease, unspecified; I10 Essential (primary) hypertension; F17.200 Nicotine dependence, unspecified, uncomplicated; Z88.0 Allergy status to penicillin; Z88.2 Allergy status to sulfonamides; Z01.810 Encounter for preprocedural cardiovascular examination; Z01.812 Encounter for preprocedural laboratory examination; Z01.818 Encounter for other preprocedural examination; Z79.82 Long term (current) use of aspirin; Z86.73 Personal history of transient ischemic attack (TIA), and cerebral infarction without residual deficits
CPT/HCPCS: 36415 ×2; 51705; 52005; 52287; 71046; 74420; 80048; 85025; 93005; C1758; J0587; J1100; J1580; J1956; J2001; J2250; J2405; J2704; Q9967

== ENCOUNTER → 2018-12-12 | Day surgery (SDC) | payer OTHER ==
[2018-12-06 12:48] LABS: BASOPHILS # (AUTO) 0.1 (0.0-0.1); BASOPHILS % 0.9 % (0.0-1.0); EOSINOPHILS # (AUTO) 0.1 (0.0-0.4); EOSINOPHILS % 1.7 % (0.0-6.0); HEMATOCRIT 37.3 % (34.2-44.1); HEMOGLOBIN 12.3 g/dL (12.0-16.0); LYMPHOCYTES # (AUTO) 1.6 (1.0-3.2); LYMPHOCYTES % 21.3 % (18.0-39.1); MEAN CORPUSCULAR HEMOGLOBIN 30.1 pg (28-32); MEAN CORPUSCULAR VOLUME 91.2 fL (81-99); MONOCYTES # (AUTO) 0.7 (0.2-0.8); MONOCYTES % 9.3 % (4.4-11.3); NEUTROPHILS # (AUTO) 5.1 (2.1-6.9); NEUTROPHILS % 66.5 % (38.7-80.0); PLATELET COUNT 212 x10e3/uL (140-360); RED BLOOD COUNT 4.09 x10e6/uL (3.6-5.1)
[~2018-12-12] MED LIST changes: +B&O 60MG R/S 60 MG SUPP PR ONE; -BELLADONNA/OPIUM 30 MG SUPP RC ONE; -EPHEDRINE SULFATE INJ 50 MG/10 ML SYR ONE; +GENTAMICIN 80MG/NS 100 ML 100 ML IV ONE; -GENTAMICIN 80MG/NS 100 ML 200 ML IV ONE; -LEVOFLOXACIN 500MG/D5W 100ML 100 ML IV ONE; +VANCOMYCIN 1GM/NS 250 ML 250 ML ONE; +[UNRECOGNIZED DRUG - OTHER] PO
--- OUTSIDE RECORDS SUMMARY | 2018-12-12 06:53 | XMS REPORT | Summary of Care ---
Author Author Tiffany Oliveira LVN Organization Unknown Address [facility] Phone Unavailable Care Team Providers Care Signaler Name Role Phone Tiffany Oliveira LVN Unavailable Unavailable LUISANA Daislva, MIAN Unavailable Unavailable ANGELINE Levy, IBAN Unavailable Unavailable ETHEL GOODMAN CT, VAL RODRIGUEZ Unavailable Unavailable ETHEL Dasilva, VAL Jean-Baptiste Unavailable ANGELINE DE SOUZA, IBAN Unavailable Unavailable Ann GOODMAN, Richard Unavailable Unavailable BRYCE GOODMAN, CRISTIAN Rome Unavailable Unavailable Unavailable Unavailable Functional Status Name [...] of chronic disease (285.29, D63.8) Status: Active Burning with urination (788.1, R30.0) Status: Active Dysuria (788.1, R30.0) Status: Active Depression screening (V79.0, Z13.31) Status: Active At low risk for fall (V49.89, Z91.81) Status: Active Varicose veins (454.9, I83.90) Status: Active Osteopenia (733.90, M85.80) Status: Active Pain, foot, chronic (729.5, M79.673) Status: Active 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, G57.90) Status: Active Hyperglycemia (790.29, R73.9) Status: Active Encounter for mini-mental status examination Status: Active UTI (urinary tract infection), bacterial [...] Active Adrenal nodule (255.8, E27.9) Status: Active Neurogenic bladder (596.54, N31.9) Status: Active Colon cancer screening (V76.51, Z12.11) Status: Active Bunion, left (727.1, M21.612) Status: Active Bunion, right (727.1, M21.611) Status: Active Foraminal stenosis of lumbar region (724.02, M99.83) Status: Active Osteoporosis (733.00, M81.0) Status: Active Sciatica (724.3, M54.30) Status: Active Aneurysm of ascending aorta (441.2, I71.2) Status: Active Colon polyp (211.3, K63.5) Status: Active Constipation (564.00, K59.00) Status: Active Essential (primary) hypertension (401.9, I10) Status: Active Prediabetes (790.29, R73.03) Status: Active Abdominal aortic aneurysm (AAA) (441.4, I71.4) Status: Active Breast cancer screening (V76.10, Z12.31) Status: Active Chronic obstructive pulmonary disease (496, J44.9) Status: Active Hyperlipidemia (272.4, E78.5) Status: Active Tinea corporis (110.5, B35.4) Status: Active Current every day smoker (305.1, F17.200) Status: Active Medications Name Dates Details Aspirin 325 MG Oral Tablet TAKE 1 TABLET DAILY. Active Enalapril Maleate 2.5 MG Oral Tablet TAKE 1 TABLET DAILY. * Quantity: 30 Refills: 5 IBAN DING * Start : 11-Feb-2014 Active Gabapentin 300 MG Oral Capsule TAKE ONE CAPSULE BY MOUTH TWO TO THREE TIMES DAILY * Quantity: 90 Refills: 2 IBAN DING * Start : 27-Jul-2015 Active Betamethasone Dipropionate Aug 0.05 % External Lotion APPLY SPARINGLY TO AFFECTED AREA(S) TWICE DAILY * Quantity: 1 Refills: 2 IBAN DING * Start : 25-Dec-2015 Active 60 ML Bottle Nitrofurantoin Monohyd Macro 100 MG Oral Capsule TAKE 1 CAPSULE TWICE DAILY UNTIL GONE. * Quantity: 20 Refills: 0 IBAN DING * Start : 20-Oct-2017 Active Meloxicam 15 MG Oral Tablet TAKE 1 TABLET DAILY. * Quantity: 30 Refills: 1 MIAN LIEBERMAN M.D. * Start : 30-Oct-2017 Active Metaxalone 800 MG Oral Tablet TAKE 1 TABLET 3 TIMES DAILY NEEDED FOR MUSCLE SPASM. * Quantity: 30 Refills: 0 MIAN LIEBERMAN M.D. * Start : 30-Oct-2017 Active tiZANidine HCl - 4 MG Oral Capsule TAKE 2 CAPSULES EVERY 6 TO 8 HOURS. * Quantity: 40 Refills: 0 MIAN LIEBERMAN M.D. * Start : 03-Nov-2017 Active Cyclobenzaprine HCl - 10 MG Oral Tablet TAKE 1 TABLET 3 TIMES DAILY. * Quantity: 30 Refills: 1 IMAN LIEBERMAN M.D. * Start : 11-Dec-2017 Active Tdap (Adacel) inject 0.5ml IM * Quantity: 1 Refills: 0 IBAN DING * Start : 26-Feb-2018 Active 0.5 ML Syringe Meloxicam 15 MG Oral Tablet TAKE 1 TABLET DAILY. * Quantity: 30 Refills: 2 MIAN LIEBERMAN M.D. * Start : 23-Apr-2018 Active Myrbetriq 50 MG Oral Tablet Extended Release 24 Hour Take one tablet daily * Refills: 0 * Start : 03-Sep-2018 Active Cefuroxime Axetil 250 MG Oral Tablet TAKE 1 TABLET EVERY 12 HOURS DAILY. * Refills: 0 * Start : 03-Sep-2018 Active Atorvastatin Calcium 40 MG Oral Tablet TAKE 1 TABLET DAILY. * Quantity: 90 Refills: 0 ANGELINE P.A., IBAN * Start : 13-Sep-2018 Active Allergies and Adverse Reactions Name Dates [...] Influenza on: Sep-2010 Fluzone INJ Lot #: [id number] on: 07-May-2013 Fluzone Quadrivalent 0.5 ML Intramuscular Suspension on: 19-Apr-2015 Prevnar 13 Intramuscular Suspension Lot #: [id number] on: 27-Jul-2015 Pneumovax 23 25 MCG/0.5ML Injection Injectable Lot #: [id number] on: 26-Jul-2016 Fluzone Quadrivalent 0.5 ML Intramuscular Suspension Prefilled Syringe Lot #: [id number] on: 26-Jul-2016 Fluzone High-Dose 0.5 ML Intramuscular Suspension Prefilled Syringe Lot #: [id number] on: 03-May-2017 Fluzone High-Dose 0.5 ML Intramuscular Suspension Prefilled Syringe Lot #: [id number] on: 26-Feb-2018 Family History Name Dates Details Family history of Cancer Status: Active Family history of Stroke Complications Status: Active Name Dates Details Family history of Coronary Artery Disease (V17.49) Status: Active Social History Name Dates Details - Status: Name Dates Details Current every day smoker Vital Signs Date Test Result Details No Known Vitals to report Results Date Description Value Details [id number] Bhavna - SCR MAMM BILATERAL REED CAD DIGITAL SCR MAMM BILATERAL REED CAD DIGITAL - SCR MAMM BILATERAL REED CAD DIGITALBILATERAL DIGITAL SCREENING MAMMOGRAM 3D/2D WITH CAD: 11/06/2018CLINICAL: Asymptomatic. Digital breast tomosynthesis was performed in addition to routine CC and MLO views. Current mammographic images were evaluated by either a [employer] M-Vu or a [employer] ImageChecker CAD (computer aided detection system). Comparison is made to exams dated 11/03/2017 mammogram, 08/22/2016 mammogram, and 08/20/2015 mammogram - [facility]-. The tissue of both breasts is heterogeneously dense. This may lower the sensitivity of mammography. No suspicious mass, architectural distortion, malignant type calcification, or lymph node abnormality detected. Breast architecture is stable compared to prior exams.IMPRESSION: NEGATIVEThere is no mammographic evidence of malignancy. Resume annual screening mammography in one year. Denver Dias M.D. ss/penrad:11/06/2018 14:07:57 Indirect Sales Representative: Earlene GUTIERREZ, [facility]-letter sent: BIRADS 1-2 Normal Mammogram BI-RADS: 1 [email or web address] Plan of Care Name Dates Details Planned Observations Planned Goals not documented Instructions Name Dates Details Instructions not documented Encounters Appointment; IBAN MARCUS PDorothyADorothy Encounter Diagnosis: Problem not documented On: 03-May-2017 9:00 Appointment; YANA DELANEY P.A. Encounter Diagnosis: Problem not documented On: 10-May-2017 8:00 Appointment; RICHARD WHITNEY M.D. Encounter Diagnosis: Problem not documented On: 18-Jul-2017 13:00 Appointment; RICHARD WHITNEY M.D. Encounter Diagnosis: Problem not documented On: 23-Aug-2017 10:00 Appointment; IBAN MARCUS PDorothyADorothy Encounter Diagnosis: Problem not documented On: 05-Oct-2017 14:00 Appointment; IBAN MARCUS PDorothyADorothy Encounter Diagnosis: Problem not documented On: 20-Oct-2017 10:00 Appointment; MIAN LIEBERMAN M.D. Encounter Diagnosis: Problem not documented On: 30-Oct-2017 10:45 Appointment; IBAN MARCUS PDorothyADorothy Encounter Diagnosis: Problem not documented On: 09-Nov-2017 [...] Diagnosis: Problem not documented On: 23-Apr-2018 9:15 Appointment; RICHARD WHITNEY M.D. Encounter Diagnosis: Problem not documented On: 26-Jul-2018 13:00 Appointment; IBAN MARCUS P.A. Encounter Diagnosis: Problem not documented On: 27-Aug-2018 8:30 Appointment; IBAN MARCUS P.A. Encounter Diagnosis: Problem not documented On: 03-Sep-2018 9:30 Appointment; TONYA CUADRA NP Encounter Diagnosis: Problem not documented On: 18-Sep-2018 15:00
[2018-12-12 11:50] VITALS: BP 149/76
--- NOTE | 2019-01-18 01:58 | Operative Report ---
DATE OF PROCEDURE: 12/12/2018 SURGEON: Damion Velasco MD PREOPERATIVE DIAGNOSES: 1. Refractory urge incontinence. 2. Urinary retention. 3. Suprapubic cystostomy. 4. Urinary tract infections. POSTOPERATIVE DIAGNOSES: 1. Refractory urge incontinence. 2. Urinary retention. 3. Suprapubic cystostomy. 4. Urinary tract infections. 5. Mild cystocele. 6. Moderate rectocele. 7. Atrophic (senile) vaginitis. OPERATIONS PERFORMED: 1. Change of cystostomy tube (separate performed for the cystostomy tube and the urinary retention). 2. Cystourethroscopy with bilateral ureteral catheterization and retrograde ureteropyelography (separate procedure performed for the urinary tract infections). 3. Interpretation of retrograde ureteropyelography. 4. Supervision of fluoroscopy, no radiologist present. 5. Cystourethroscopy with intravesical injection of Botox (separate procedure performed for the refractory incontinence). 6. Pelvic examination under anesthesia. ANESTHESIA: General. COMPLICATIONS: None. CLINICAL SUMMARY: Chela Burrell is a 73-year-old woman with the above preoperative diagnoses. She is brought for the above procedures. She is aware of the risks of bleeding, infection, injury to adjacent structures, need for additional procedures and elected to proceed. OPERATIVE PROCEDURE IN DETAIL: Informed consent was verified. Chela Burrell was properly identified and taken to the operating room, placed on the cystoscopy table in supine position. Anesthesia was uneventfully begun. The suprapubic tube was removed and the patient's abdomen and genitalia were prepared and draped in usual sterile fashion. A 24-Italian Lance catheter was inserted in the patient's suprapubic tract, it was brought into the region of the bladder and inflated with 10 mL of sterile water. Cystourethroscopy was then performed. The cystoscope sheath with obturator in place was atraumatically inserted into the patient's urethra and the bladder was drained. Panendoscopy revealed no suspicious mucosal lesions. The suprapubic tube was seen in an appropriate position. There was some mild erythema of the bladder, most notably at the dome. No suspicious lesions were identified. Normally positioned configured ureteral orifices were noted. An 8-Italian catheter was used to cannulate each ureter and retrograde ureteral pyelograms were performed. Interpretation of retrograde ureteropyelography contrast was instilled in retrograde fashion bilaterally. There were no tumors, no stones, and no diverticula. Unobstructed drainage was observed bilaterally fluoroscopically. There was some ptosis of the right kidney compared to the left kidney. A 200 units of Botox were dissolved in 20 mL of sterile saline, they were injected in 1 mL aliquots in an even distribution in the supratrigonal bladder. The bladder was drained. The cystoscope was withdrawn. Pelvic examination under anesthesia revealed a grade 1 cystocele, grade 2 rectocele. There was atrophic (senile) vaginitis. No abnormal palpable pelvic masses could be appreciated. There were no obvious mucosal lesions and the patient was then uneventfully reversed from anesthesia and taken to recovery room in stable condition. There were no complications at the end of the procedure. She tolerated the procedure well. Explicit postoperative instructions were given. We will follow the patient up in the office in approximately 4 weeks to change her cystostomy tube. MD PAMELLA Whittington/MODL /[id number]
== END | disposition home or self-care (01) ==
LOC: OR 06:51
PROVIDERS: ATTEND Urology
DX: N39.46 Mixed incontinence (principal); N31.9 Neuromuscular dysfunction of bladder, unspecified; Z43.5 Encounter for attention to cystostomy; N39.0 Urinary tract infection, site not specified; N81.10 Cystocele, unspecified; N81.6 Rectocele; N95.2 Postmenopausal atrophic vaginitis; N28.83 Nephroptosis; I69.90 Unspecified sequelae of unspecified cerebrovascular disease; J44.9 Chronic obstructive pulmonary disease, unspecified; I10 Essential (primary) hypertension; F17.210 Nicotine dependence, cigarettes, uncomplicated; Z88.0 Allergy status to penicillin; Z88.2 Allergy status to sulfonamides; Z01.810 Encounter for preprocedural cardiovascular examination; Z01.812 Encounter for preprocedural laboratory examination; Z79.82 Long term (current) use of aspirin
CPT/HCPCS: 36415; 51705; 52005; 52287; 74420; 85025; 93005; C1758; J0587; J1100; J1580; J2001; J2250; J2405; J2704; J3370; Q9967; J3010